=== PATIENT | male | born 1965 | race Caucasian/White ===

== ENCOUNTER 2021-12-26 22:00 | Emergency (ER) | payer OTHER ==
[2021-12-26] MEDS ORDERED: Bacitracin Oint 1 GM U/D Packet TOP ONE (23:53)
[2021-12-26] MEDS ORDERED: Lidocaine 1% 5 ML VIAL INJECT ONE (23:53)
== END 2021-12-27 00:35 | disposition home or self-care (01) ==
LOC: JP.ED 22:00
DX: S01.01XA Laceration without foreign body of scalp, initial encounter (principal); Z79.899 Other long term (current) drug therapy; W18.39XA Other fall on same level, initial encounter
CPT/HCPCS: 12001; 99282